=== PATIENT | female | born 1990 | race Caucasian/White ===

== ENCOUNTER 2016-10-03 23:53 | Emergency (ER) | payer OTHER ==
[~2016-10-03] VITALS: Ht 162.6 cm; Wt 86.2 kg
[2016-10-04] MEDS ORDERED: IPRATROPIUM BROM 0.5 MG/2.5ML INH SOL NEB ONE ×3 (00:15→05:15)
[2016-10-04] MEDS ORDERED: cloNIDine HCL 0.1 MG TAB PO ONE (00:15)
[2016-10-04] MEDS ORDERED: ALBUTEROL SULF 2.5 MG/0.5ML(0.5%) NEB SOLN NEB ONE ×3 (00:15→05:15)
[2016-10-04] MEDS ORDERED: methylPREDNISolone SOD SUCC 125 MG/2 ML VL IV ONE ×2 (00:30→05:15)
[2016-10-04] MEDS ORDERED: MAGNESIUM SULFATE 1GM/100ML 100 ML IV ONE (00:45)
[2016-10-04 00:51] LABS: Chloride 106 mmol/L (98-107); Sodium 141 mmol/L (136-145)
[2016-10-04 00:53] LABS: Basophils # (auto) 0.1 uL; Basophils % (auto) 0.4 % (0.0-2.0); DEFINITIVE VIEW TRANSMISSION; Eosinophils # (auto) 1.1 uL; Eosinophils % (auto) 8.1 % (0.0-7.0); Hematocrit 45.3 % (36.0-46.0); Lymphocytes # (auto) 4.2 uL; Mean Corpuscular Hemoglobin 28.6 pg (28.0-32.0); Mean Corpuscular Hgb Conc. 33.1 g/dL (32.0-36.0); Mean Corpuscular Volume 86.3 fL (80.0-100.0); Mean Platelet Volume 9.4 fL (7.4-10.4); Monocytes % (auto) 7.6 % (0.0-12.0); Neutrophils # (auto) 6.8 uL; Neutrophils % (auto) 51.9 % (37.0-80.0); Platelet Count (auto) 321 10^3/uL (140-450); Red Cell Distribution Width 12.5 % (11.6-16.0); White Blood Cell 13.2 10^3/uL (4.4-10.8)
[2016-10-04] MEDS: MAGNESIUM SULFATE 1GM/100ML 100 ML IV SCH ×2 (00:56→01:50)
[2016-10-04 01:07] LABS: INR 1.02 (0.9-1.15)
[2016-10-04 01:08] LABS: Albumin 4.5 g/dL (3.4-5.0); Anion Gap 7 (5-15); BUN/Creatinine Ratio 14.1; Blood Urea Nitrogen 13 mg/dL (7-18); Calcium 9.6 mg/dL (8.5-10.1); Carbon Dioxide 28 mmol/L (21-32); GFR African American 95 mL/min; GFR Non-African American 78 mL/min; Glucose 120 mg/dL (74-106)
[2016-10-04 01:12] LABS: Alkaline Phosphatase 95 U/L (45-117); Aspartate Aminotransferase 17 U/L (15-37); Bilirubin, Total 0.4 mg/dL (0.2-1.0); Total Protein 8.4 g/dL (6.4-8.2)
[2016-10-04 01:28] LABS: B-Type Natriuretic Peptide < 5.0 pg/mL (0-100); Temperature: 21.7 C (20.0-25.0)
[2016-10-04] MEDS ORDERED: EPINEPHrine HCL 1 MG/1 ML AMP SC ONE (02:15)
[2016-10-04] MEDS ORDERED: FAMOTIDINE (10MG/ML) 2ML VL IV ONE (02:15)
[2016-10-04] MEDS ORDERED: SODIUM CHLORIDE 0.9% 1,000 ML IV ONE ×2 (02:15→05:15)
[2016-10-04] MEDS ORDERED: HYDROcodone-ACET 5/325MG TAB PO ONE (05:45)
[2016-10-04 06:29] VITALS: BP 141/85
== END 2016-10-04 06:31 | disposition home or self-care (01) ==
LOC: ER 23:53
DX: J45.901 Unspecified asthma with (acute) exacerbation (principal); J06.9 Acute upper respiratory infection, unspecified
CPT/HCPCS: 36415; 71010; 80053; 83880; 84484; 85025; 85610; 85730; 94640; 94644; 96361; 96365; 96366; 96372; 96375; 96376; 99285; J0171; J2930; J3475; J3490; J7030

== ENCOUNTER 2018-05-06 06:22 | Emergency (ER) | payer OTHER ==
[~2018-05-06] VITALS: Ht 162.6 cm; Wt 99.8 kg
[2018-05-06 07:18] VITALS: BP 158/89
[2018-05-06 07:45] LABS: Urine Bacteria FEW /hpf (None Seen); Urine Blood Negative /uL (Negative); Urine Mucus FEW (None Seen); Urine Specific Gravity 1.029 (1.001-1.035); Urine WBC 11 /hpf (0 - 5)
[2018-05-06] MEDS ORDERED: KETOROLAC TROMETH 60MG/2ML VIAL IM ONE (07:45)
== END 2018-05-06 08:13 | disposition home or self-care (01) ==
LOC: ER 06:22
DX: S29.012A Strain of muscle and tendon of back wall of thorax, initial encounter (principal); N39.0 Urinary tract infection, site not specified; J45.909 Unspecified asthma, uncomplicated; V49.9XXA Car occupant (driver) (passenger) injured in unspecified traffic accident, initial encounter; Y93.89 Activity, other specified; Y99.8 Other external cause status; Y92.89 Other specified places as the place of occurrence of the external cause
CPT/HCPCS: 72070; 81001; 81025; 96372; 99284; J1885